=== PATIENT | male | born 1995 | race Asian ===

== ENCOUNTER 2016-09-17 14:43 | Emergency (ER) | payer OTHER ==
[~2016-09-17] VITALS: Ht 182.9 cm; Wt 55.7 kg
[2016-09-17 14:45] VITALS: BP 128/85; TEMP 36.4; Ht 182.9 cm; Wt 55.7 kg
[2016-09-17 15:50] LABS: URINE APPEARANCE CLOUDY (CLEAR); URINE BILIRUBIN NEG (NEG); URINE COLOR YELLOW; URINE NITRITE NEG (NEG); URINE PH 6.5 (4.5-7.5); URINE SPECIFIC GRAVITY 1.024 (1.000-1.030); UROBILINOGEN NEG (NEG)
[2016-09-17 15:51] LABS: MANUAL MICROSCOPIC REQUIRED? NO; REVIEW REQ? NO
--- NOTE | 2016-09-17 16:29 | EMERGENCY ROOM VISIT NOTE ---
History Report prepared by Saravanan: Teagan Wilkins Under the Supervision of: Dr. Deshawn Kuo M.D. First contact with patient: 14:50 Chief Complaint: TESTICULAR PAIN Stated Complaint: TESTICULAR PAIN Nursing Triage Summary: left testicle pain. no swelling. pain started about 1 week ago. denies injury. pain has increased over the past couple of days. History of Present Illness The patient is a 20 year old male who presents to the Emergency Room with complaints of persistent left testicular pain which started 1 week ago. He presented to the ED after he was unable to sleep last night because of the pain. He has never experienced pain in his testicle before. He is unsure if it is swollen. He notes that he has been urinating more frequently, but denies dysuria. He denies any trauma. Source of History: patient Onset: 1 week ago Position: other (left testicle) Quality: other (pain) Timing: other (persistent) Note: Pt reports more frequent urination. Pt denies dysuria. Review of Systems See HPI for pertinent positives & negatives. A total of 10 systems reviewed and were otherwise negative. Past Medical & Surgical Medical Problems: (1) No Known Active Medical Problems Family History Patient reports no known family medical history. Social History Smoking Status: Current Some Day Smoker Marital Status: single Housing Status: lives with roommate Occupation Status: student Current/Historical Medications No Active Prescriptions or Reported Meds Allergies Coded Allergies: No Known Allergies (Unverified , 09/17/16) Physical Exam Vital Signs Date Time Temp Pulse Resp B/P Pulse Ox O2 Delivery O2 Flow Rate FiO2 09/17/16 17:26 106 18 100 09/17/16 14:45 36.4 83 18 128/85 99 Room Air Physical Exam GENERAL: Patient is in no acute distress. HEENT: No acute trauma, normocephalic atraumatic, mucous membranes moist, no nasal congestion, no scleral icterus. NECK: No stridor, no adenopathy, no meningismus, trachea is midline. LUNGS: Clear to auscultation bilaterally, no wheeze, no rhonchi, breath sounds equal. HEART: Without murmurs gallops or rubs, regular rate and rhythm. ABDOMEN: Soft, nontender, bowel sounds positive, no hernias, no peritonitis. GROIN: Circumcised. Normal testicles. No hernia even with straining. Left testicle and left hemiscrotum slightly tender with palpation. EXTREMITIES: No cyanosis or edema, full range of motion of all the joints without pain or difficulty, no signs for acute trauma. NEUROLOGIC: Oriented x 3, no acute motor or sensory deficits, no focal weakness. SKIN: No rash, no jaundice, no diaphoresis. Medical Decision & Procedures ER Provider Diagnostic Interpretation: Radiology results and stated below per my review and radiologist interpretation: SCROTAL ULTRASOUND CLINICAL HISTORY: Left testicular pain. COMPARISON STUDY: None. TECHNIQUE: Grayscale and color and duplex Doppler sonography of the scrotum was performed. FINDINGS: The right testis measures 3.9 x 1.9 x 3 cm and the left measures 4 x 2.1 x 2.7 cm. There is no testicular mass. Color flow within each testis is symmetric. There is no evidence of epididymitis. IMPRESSION: 1. Normal sonographic appearance of the testes. No evidence of testicular torsion. No testicular mass. 2. No evidence of epididymitis. Electronically signed by: Tadeo Lawler M.D. 09/17/2016 4:55 PM Dictated Date/Time: 09/17/2016 4:53 PM Laboratory Results Test 09/17/16 15:38 Urine Color YELLOW Urine Appearance CLOUDY (CLEAR) Urine pH 6.5 (4.5-7.5) Urine Specific [place] 1.024 (1.000-1.030) Urine Protein NEG (NEG) Urine Glucose (UA) NEG (NEG) Urine Ketones NEG (NEG) Urine Occult Blood NEG (NEG) Urine Nitrite NEG (NEG) Urine Bilirubin NEG (NEG) Urine Urobilinogen NEG (NEG) Urine Leukocyte Esterase NEG (NEG) Urine WBC (Auto) 0 /hpf (0-5) Urine RBC (Auto) 0-4 /hpf (0-4) Urine Hyaline Casts (Auto) 1-5 /lpf (0-5) Urine Epithelial Cells (Auto) 5-10 /lpf (0-5) Urine Bacteria (Auto) NEG (NEG) Laboratory results reviewed by me. Medications Administered Medications (Trade) Dose Ordered Sig/Natalia Route Start Time Stop Time Status Last Admin Dose Admin Azithromycin (Zithromax Tab) 1,000 mg NOW STAT PO 09/17/16 17:05 09/17/16 17:07 DC 09/17/16 17:20 1,000 MG Ceftriaxone Sodium (Rocephin Im) 250 mg NOW STAT IM 3/13/17 17:05 09/17/16 17:07 DC 09/17/16 17:20 250 MG ED Course 1449: The patient was evaluated in room D5. A complete history and physical exam was performed. 170: I reevaluated the patient. I discussed the results and treatment plan with him. I suggested he take medications for early epididymitis. He verbalized understanding and agreement. He will be discharged home. 1705: Rocephin Im 250 mg IM, Zithromax Tab 1000 mg PO. Medical Decision Differential diagnoses: testicular torsion, epididymitis, hernia, UTI, renal stone. The patient presents with some intermittent left testicle pain. On exam, his testicle was normal in size. I could not find evidence for hernia. He had no abdominal discomfort. He has not had fever or vomiting. There has been no testicular trauma. Urinalysis does not show infection or hematuria. Testicular ultrasound showed no abnormalities, it was a normal testicular ultrasound, good blood flow to both testicles. The patient will be treated for the possibility of early epididymitis. He was given IM ceftriaxone and oral Zithromax. He was told to wear more supportive, Jockey-like underwear. He can use [id number] pain medications. If not improving or worsening, he needs to return for reassessment. Impression Primary Impression: Pain in left testicle Scribe Attestation The scribe's documentation has been prepared under my direction and personally reviewed by me in its entirety. I confirm that the note above accurately reflects all work, treatment, procedures, and medical decision making performed by me. Departure Information Dispostion Home / Self-Care Prescriptions No Active Prescriptions or Reported Meds Referrals No Doctor, Assigned (PCP) Forms HOME CARE DOCUMENTATION FORM, IMPORTANT VISIT INFORMATION, WORK / SCHOOL INSTRUCTIONS Patient Instructions My [facility] [employer] Additional Instructions jockey underwear to give more support to the testicles motrin or tylenol over the counter for pain as needed return for worsening pain or symptoms testing today was ok as we discussed
--- NOTE | 2016-09-17 16:56 | DIAGNOSTIC IMAGING REPORT ---
SCROTAL ULTRASOUND CLINICAL HISTORY: Left testicular pain. COMPARISON STUDY: None. TECHNIQUE: Grayscale and color and duplex Doppler sonography of the scrotum was performed. FINDINGS: The right testis measures 3.9 x 1.9 x 3 cm and the left measures 4 x 2.1 x 2.7 cm. There is no testicular mass. Color flow within each testis is symmetric. There is no evidence of epididymitis. IMPRESSION: 1. Normal sonographic appearance of the testes. No evidence of testicular torsion. No testicular mass. 2. No evidence of epididymitis. Electronically signed by: Tadeo Lawler M.D. 09/17/2016 4:55 PM Dictated Date/Time: 09/17/2016 4:53 PM
[2016-09-17] MEDS ORDERED: AZITHROMYCIN 250 MG TAB PO STA (17:05)
[2016-09-17] MEDS ORDERED: CEFTRIAXONE SOD 350MG/ML 1 GM VIAL IM STA (17:05)
[2016-09-17 17:26] VITALS: PULSE 106; O2SAT 100
== END 2016-09-17 17:27 | disposition home or self-care (01) ==
LOC: C.EDB 14:45 → C.EDD 17:27
DX: N50.812 Left testicular pain (principal); F17.200 Nicotine dependence, unspecified, uncomplicated

== ENCOUNTER 2016-10-08 12:11 | Emergency (ER) | payer OTHER ==
[~2016-10-08] VITALS: Ht 185.4 cm; Wt 51.3 kg
[2016-10-08 12:13] VITALS: TEMP 36.8; Ht 185.4 cm; Wt 51.3 kg
[2016-10-08] MEDS ORDERED: CEFTRIAXONE SOD 350MG/ML 1 GM VIAL IM STA (12:37)
[2016-10-08] MEDS ORDERED: IBUPROFEN 600 MG TAB PO STA (12:37)
[2016-10-08] MEDS ORDERED: AZITHROMYCIN 250 MG TAB PO STA (12:37)
--- NOTE | 2016-10-08 12:37 | EMERGENCY ROOM VISIT NOTE ---
History Report prepared by Saravanan: Linda Neves Under the Supervision of: Dr. Alfonzo Alatorre M.D. First contact with patient: 12:24 Chief Complaint: ABDOMINAL PAIN Stated Complaint: RECTAL PAIN Nursing Triage Summary: pt c/o lower pelvic pain and increased urinary frequency no c/o dysuria pt describes pain as "uncomfortable" History of Present Illness The patient is a 21 year old male who presents to the Emergency Room with complaints of persistent lower abdominal pain that began prior to arrival. He currently rates his discomfort as a 4/10 in severity. Per records, the patient was evaluated in the emergency department for testicular pain one month ago, but the patient states that his pain had resolved. The patient notes increased urination and pain with urination with his symptoms today. Source of History: patient Onset: prior to arrival Position: abdomen (lower) Symptom Intensity: 4/10 Timing: other (persistent) Associated Symptoms: + urinary symptoms (urinary frequency, pain with urination) Review of Systems See HPI for pertinent positives & negatives. A total of 10 systems reviewed and were otherwise negative. Past Medical & Surgical Medical Problems: (1) No Known Active Medical Problems Family History Patient reports no known family medical history. Social History Smoking Status: Never Smoker Marital Status: single Housing Status: lives with roommate Occupation Status: student Current/Historical Medications Scheduled Doxycycline Monohydrate (Monodox), 100 MG PO BID Scheduled PRN Oxycodone/Acetaminophen 5MG/325MG (Percocet 5MG/325MG), 1-2 TAB PO Q4H PRN for Pain Allergies Coded Allergies: No Known Allergies (Unverified , 10/08/16) Physical Exam Vital Signs Date Time Temp Pulse Resp B/P Pulse Ox O2 Delivery O2 Flow Rate FiO2 10/08/16 15:58 63 18 109/74 99 Room Air 10/08/16 14:13 66 14 121/76 98 10/08/16 12:13 36.8 96 18 115/82 100 Room Air Physical Exam GENERAL: Patient is a healthy-appearing well-nourished HEAD: Normocephalic atraumatic EYES: Ocular movements intact pupils equal and react to light OROPHARYNX mucous membranes are moist no exudates present no erythema or edema present NECK: Supple no nuchal rigidity CHEST: Good equal expansion LUNGS: Clear and equal to auscultation CARDIAC: Normal S1 and S2 ABDOMEN: Soft nontender no guarding BACK: No CVA tenderness EXTREMITIES: No pain upon palpation normal muscle strength in all groups no clubbing cyanosis or edema NEURO: Patient is following commands is answering questions appropriately. Alert and oriented x3 Cranial Nerves 2-12 grossly intact Medical Decision & Procedures ER Provider Diagnostic Interpretation: Radiology results as stated below per my review and radiologist interpretation: EXAMINATION: RENAL ULTRASOUND CLINICAL HISTORY: Urinary frequency COMPARISON STUDY: None FINDINGS: The right kidney measures 10.6 cm. The left kidney measures 10 cm. There is no evidence of hydronephrosis. There are no renal masses. No bladder abnormalities are visualized. Bilateral ureteral jets were visualized. The prostate appears enlarged measuring 42 mm. IMPRESSION : Prostamegaly. Otherwise normal renal ultrasound. Electronically signed by: Ahmet Mills M.D. 10/08/2016 3:15 PM Dictated Date/Time: 10/08/2016 3:14 PM KUB CLINICAL HISTORY: Pt c/o suprapubic pain COMPARISON STUDY: No previous studies for comparison. FINDINGS: The soft tissues, psoas shadows, renal outlines and intestinal gas pattern appear normal. There is no evidence for bowel obstruction. No abnormal abdominal calcifications are seen. IMPRESSION: Normal study. Electronically signed by: Noel Munoz M.D. 10/08/2016 1:49 PM Dictated Date/Time: 10/08/2016 1:49 PM Laboratory Results Test 10/08/16 12:26 Urine Color YELLOW Urine Appearance CLEAR (CLEAR) Urine pH 5.5 (4.5-7.5) Urine Specific [place] 1.026 (1.000-1.030) Urine Protein NEG (NEG) Urine Glucose (UA) NEG (NEG) Urine Ketones TRACE (NEG) Urine Occult Blood NEG (NEG) Urine Nitrite NEG (NEG) Urine Bilirubin NEG (NEG) Urine Urobilinogen NEG (NEG) Urine Leukocyte Esterase NEG (NEG) Labs reviewed by ED physician. Medications Administered Medications (Trade) Dose Ordered Sig/Natalia Route Start Time Stop Time Status Last Admin Dose Admin Oxycodone/ Acetaminophen (Percocet 5-325mg Tab) 2 tab NOW ONCE PO 10/08/16 12:45 10/08/16 12:46 DC 10/08/16 13:30 2 TAB Ibuprofen (Motrin Tab) 600 mg NOW STAT PO 10/08/16 12:37 10/08/16 12:41 DC 10/08/16 13:29 600 MG Ceftriaxone Sodium (Rocephin Im) 250 mg NOW STAT IM 10/08/16 12:37 10/08/16 12:41 DC 10/08/16 13:32 250 MG Azithromycin (Zithromax Tab) 1,000 mg NOW STAT PO 10/08/16 12:37 10/08/16 12:41 DC 10/08/16 13:31 1,000 MG Doxycycline Hyclate (Vibramycin Cap) 100 mg ONE ONCE PO 10/08/16 15:30 10/08/16 15:31 DC 10/08/16 15:57 100 MG ED Course 1234: Past medical records reviewed. The patient was evaluated in room C11B. A complete history and physical examination was performed. 1237: Ordered Azithromycin 1000 mg PO, Rocephin IM 250 mg IM, Motrin Tab 600 mg PO. 1245: Ordered Oxycodone/Acetaminophen 2 tab PO. 1530: Ordered Vibramycin Cap 100 mg PO. 1605: I reevaluated the patient and he is resting comfortably. I discussed the exam findings with him and I discussed the treatment plan. He verbalized complete understanding and agreement. He is ready to go home. Medical Decision Differential diagnosis: Etiologies such as appendicitis, diverticulitis, PUD, biliary pathology, UTI, pancreatitis, obstruction, mesenteric ischemia, aortic pathology, infections, inflammatory bowel disease, renal colic, as well as others were entertained. This is a 21-year-old male who presents emergency department complaining of pain with defecation as well as frequency with urination. I will note that the patient recently seen in the emergency department and diagnosed with epididymitis. I believe his infection has moved up into his prostate based on imaging from the ultrasound. This would explain the patient's symptoms. Based on these findings and the patient's age he was given Rocephin as well as azithromycin. I will place the patient on doxycycline twice a day for 2 weeks. I also stressed the need for follow-up with urology. The patient was given Percocet and ibuprofen in the emergency department. Patient was in agreement with the treatment plan. Impression Primary Impression: Prostatitis Scribe Attestation The scribe's documentation has been prepared under my direction and personally reviewed by me in its entirety. I confirm that the note above accurately reflects all work, treatment, procedures, and medical decision making performed by me. Departure Information Dispostion Home / Self-Care Prescriptions Oxycodone/Acetaminophen 5MG/325MG (PERCOCET 5MG/325MG) Tab 1-2 TAB PO Q4H Y for Pain, #14 TAB Prov: Alfonzo Alatorre MD 10/08/16 Doxycycline Monohydrate (Monodox) 100 Mg Cap 100 MG PO BID for 14 Days, #28 CAP Prov: Alfonzo Alatorre MD 10/08/16 Referrals No Doctor, Assigned (PCP) Juanjose Marie M.D. Forms HOME CARE DOCUMENTATION FORM, IMPORTANT VISIT INFORMATION, School Instructions, Work Instructions Patient Instructions ED Prostatitis, My [facility], Prostatitis Bacterial Additional Instructions Follow up with DR Marie's office You received narcotic or benzodiazepene medication while in the emergency room today. Do not drive, operate heavy machinery, or drink alcohol under the influence of this medication. Take 600 mg Ibuprofen every 6 hours Take Percocet for breakthrough pain Culture results are usually available in approx 48 hours You have been examined and treated today on an emergency basis only. This is not a substitute for, or an effort to provide, complete comprehensive medical care. It is impossible to recognize and treat all injuries or illnesses in a single emergency department visit. It is therefore important that you follow up closely with [facility]. Call as soon as possible for an appointment. Thank you for your time and consideration. I look forward to speaking with you again soon. Please don't hesitate to call us if you have any questions. Problem Qualifiers Primary Impression: Prostatitis Prostatitis type: acute Qualified Codes: N41.0 - Acute prostatitis
[2016-10-08] MEDS ORDERED: OXYCODONE/ACETAMINOPHEN 5-325 TAB PO ONE (12:45)
[2016-10-08 13:15] LABS: URINE APPEARANCE CLEAR (CLEAR); URINE BILIRUBIN NEG (NEG); URINE COLOR YELLOW; URINE NITRITE NEG (NEG); URINE PH 5.5 (4.5-7.5); URINE SPECIFIC GRAVITY 1.026 (1.000-1.030); UROBILINOGEN NEG (NEG); ZZUR CULT IF INDIC CLEAN CATCH NO
[2016-10-08 13:18] LABS: MANUAL MICROSCOPIC REQUIRED? NO; REVIEW REQ? NO
--- NOTE | 2016-10-08 13:51 | DIAGNOSTIC IMAGING REPORT ---
KUB CLINICAL HISTORY: Pt c/o suprapubic pain COMPARISON STUDY: No previous studies for comparison. FINDINGS: The soft tissues, psoas shadows, renal outlines and intestinal gas pattern appear normal. There is no evidence for bowel obstruction. No abnormal abdominal calcifications are seen. IMPRESSION: Normal study. Electronically signed by: Noel Munoz M.D. 10/08/2016 1:49 PM Dictated Date/Time: 10/08/2016 1:49 PM
--- NOTE | 2016-10-08 15:16 | DIAGNOSTIC IMAGING REPORT ---
EXAMINATION: RENAL ULTRASOUND CLINICAL HISTORY: Urinary frequency COMPARISON STUDY: None FINDINGS: The right kidney measures 10.6 cm. The left kidney measures 10 cm. There is no evidence of hydronephrosis. There are no renal masses. No bladder abnormalities are visualized. Bilateral ureteral jets were visualized. The prostate appears enlarged measuring 42 mm. IMPRESSION : Prostamegaly. Otherwise normal renal ultrasound. Electronically signed by: Ahmet Mills M.D. 10/08/2016 3:15 PM Dictated Date/Time: 10/08/2016 3:14 PM
[2016-10-08] MEDS ORDERED: DOXYCYCLINE HYCLATE 100 MG CAP PO ONE (15:30)
[2016-10-08 15:58] VITALS: BP 109/74; PULSE 63; O2SAT 99
[2016-10-08] MEDS ORDERED: OXYC-57 PO (16:13)
[2016-10-08] MEDS ORDERED: DOXY100C76 PO (16:13)
== END 2016-10-08 16:30 | disposition home or self-care (01) ==
LOC: C.EDB 12:12 → C.EDC 16:30
DX: N41.0 Acute prostatitis (principal)